=== PATIENT | male | born 1940 | race Caucasian/White ===

== ENCOUNTER 2018-01-19 22:48 | Inpatient (IN) | payer MEDICARE, OTHER ==
[~2018-01-19] VITALS: Ht 170.2 cm; Wt 63.6 kg
[~2018-01-19 22:48] MED LIST: ALBU18HF2 IH; ALPR-624 PO; AMLO2.5T2 PO; ATOR20TA PO; HYDR-3965 PO; MULT-785 PO; OMEP-84 PO
[2018-01-19] MEDS ORDERED: methylPREDNISolone sod succ 125mg/2ml vial IV ONE (23:05)
[2018-01-19] MEDS ORDERED: ipratropium/albuterol 3ml nebule NEB ONE (23:05)
[2018-01-19] MEDS: magnesium 1gm/100ml D5W IVPB 100 ML IV SCH (23:29)
[2018-01-19 23:37] LABS: BASOPHILS # (AUTO) 0.2 X10'3 (0-0.2); EOSINOPHILS % (AUTO) 0.1 % (0-6); HEMATOCRIT 37.6 % (42.0-52.0); HEMOGLOBIN 12.6 g/dl (14.0-17.9); LYMPHOCYTES # (AUTO) 0.2 X10'3 (1.1-4.8); LYMPHOCYTES % (AUTO) 1.1 % (21-51); MEAN CORPUSCULAR HEMOGLOBIN 30.4 PG (27.0-31.0); MEAN CORPUSCULAR HGB CONC 33.4 % (33.0-36.5); MEAN CORPUSCULAR VOLUME 91.1 FL (78-98); MEAN PLATELET VOLUME 8.6 FL (7.4-10.4); MONOCYTES # (AUTO) 1.1 X10'3 (0-0.9); MONOCYTES % (AUTO) 6.1 % (2-12); NEUTROPHILS # (AUTO) 17.3 X10'3 (1.8-7.7); NEUTROPHILS % (AUTO) 91.7 % (42-75); PLATELET COUNT 202 X10'3 (140-440); RED BLOOD COUNT 4.13 X10'6 (4.70-6.10); WHITE BLOOD COUNT 18.9 X10'3 (4.5-11.0)
[2018-01-19 23:56] LABS: D-DIMER 0.44 MG/L FEU (0-0.50)
[2018-01-19 23:58] LABS: ALANINE AMINOTRANSFERASE 13 U/L (12-78); ALBUMIN 3.1 G/DL (3.4-5.0); ALBUMIN/GLOBULIN RATIO 0.9 (1.1-1.5); ALKALINE PHOSPHATASE 92 IU/L (46-116); ANION GAP 8 (8-16); ASPARTATE AMINO TRANSFERASE 14 U/L (10-37); BILIRUBIN,TOTAL 0.6 MG/DL (0.1-1.0); BLOOD UREA NITROGEN 22 MG/DL (7-18); BUN/CREATININE RATIO 24.4 (5.4-32.0); CALCIUM 8.8 MG/DL (8.5-10.1); CHLORIDE 97 MMOL/L (99-107); GLUCOSE 146 MG/DL (70-104); SODIUM 136 MMOL/L (135-145); TOTAL CARBON DIOXIDE 31.5 MMOL/L (24-32); TOTAL PROTEIN 6.5 G/DL (6.4-8.2); eGFR 81 ML/MIN
[2018-01-20 00:07] LABS: MAGNESIUM 1.5 MG/DL (1.5-2.4)
[2018-01-20] MEDS ORDERED: CefTRIAXone 2gm/D5W 50ml 50 ML IV ONE (00:15)
[2018-01-20] MEDS ORDERED: azithromycin/NS 500mg/250ml 250 ML IV ONE (00:15)
[2018-01-20] MEDS ORDERED: ALBU18HF2 INH (00:33)
[2018-01-20] MEDS ORDERED: MAGN400O6 PO (00:33)
[2018-01-20] MEDS ORDERED: SENN-161 PO (00:33)
[2018-01-20] MEDS ORDERED: CALC500T11 PO (00:33)
[2018-01-20] MEDS: magnesium 1gm/100ml D5W IVPB 100 ML IV SCH (00:33)
[2018-01-20] MEDS ORDERED: NAPR-56 PO (00:33)
[2018-01-20] MEDS ORDERED: LORA1TAB PO (00:33)
[2018-01-20] MEDS ORDERED: MORP10CA11 PO (00:33)
[2018-01-20] MEDS ORDERED: magnesium 1gm/100ml D5W IVPB 100 ML IV PRN (01:00)
[2018-01-20] MEDS ORDERED: ipratropium/albuterol 3ml nebule NEB PRN (01:00)
[2018-01-20] MEDS ORDERED: mag hydrox/Alum hydrox/simeth 30ml oral suspension PO PRN (01:00)
[2018-01-20] MEDS ORDERED: potassium Cl 20 mEq SR tablet PO PRN ×2 (01:00)
[2018-01-20] MEDS ORDERED: magnesium 4gm in 100ml NS 100 ML IV PRN (01:00)
[2018-01-20] MEDS ORDERED: HYDROcodone/acetaminophen 10/325mg tab PO PRN (01:00)
[2018-01-20] MEDS ORDERED: HYDROcodone/acetaminophen 5mg/325mg tablet PO PRN (01:00)
[2018-01-20] MEDS ORDERED: magnesium hydroxide 30ml (MOM) UD suspension PO PRN (01:00)
[2018-01-20] MEDS ORDERED: ondansetron/PF 4mg/2ml inj IV PRN (01:00)
[2018-01-20] MEDS ORDERED: acetaminophen 325mg tablet PO PRN (01:00)
[2018-01-20] MEDS ORDERED: potassium Cl 40MEQ/NS 500ml 500 ML IV PRN ×2 (01:00)
[2018-01-20 02:40] VITALS: BP 136/57
[2018-01-20] MEDS: calcium carbonate 500mg chew tablet PO SCH ×5 (03:35→20:00)
[2018-01-20 07:00] VITALS: BP 115/46
[2018-01-20] MEDS: K and/or MAG REPLACEMENT MC SCH (07:50)
[2018-01-20] MEDS: pantoprazole 40mg Tablet.DR PO SCH (07:52)
[2018-01-20] MEDS: morphine ER 15mg tablet PO SCH ×2 (07:52→20:32)
[2018-01-20] MEDS: enoxaparin 40mg/0.4ml syringe SQ SCH (07:53)
[2018-01-20 08:51] LABS: BASOPHILS % (AUTO) 0 % (0-1); EOSINOPHILS # (AUTO) 0.4 X10'3 (0-0.9); EOSINOPHILS % (AUTO) 1.6 % (0-6); HEMATOCRIT 39.3 % (42.0-52.0); LYMPHOCYTES # (AUTO) 0.3 X10'3 (1.1-4.8); LYMPHOCYTES % (AUTO) 1.2 % (21-51); MEAN CORPUSCULAR HEMOGLOBIN 30.4 PG (27.0-31.0); MEAN CORPUSCULAR HGB CONC 33.2 % (33.0-36.5); MEAN CORPUSCULAR VOLUME 91.8 FL (78-98); MEAN PLATELET VOLUME 8.6 FL (7.4-10.4); MONOCYTES # (AUTO) 0.2 X10'3 (0-0.9); MONOCYTES % (AUTO) 0.9 % (2-12); NEUTROPHILS % (AUTO) 96.3 % (42-75); PLATELET COUNT 206 X10'3 (140-440); RED BLOOD COUNT 4.28 X10'6 (4.70-6.10); WHITE BLOOD COUNT 21.8 X10'3 (4.5-11.0)
[2018-01-20 11:00] VITALS: BP 112/50
[2018-01-20 20:00] VITALS: BP 142/61
[2018-01-20] MEDS ORDERED: LORazepam 1 MG tablet PO SCH (21:00)
[2018-01-21] VITALS: BP 121/55
[2018-01-21] MEDS: calcium carbonate 500mg chew tablet PO SCH ×4 (04:00→12:00)
[2018-01-21 05:00] LABS: BASOPHILS % (AUTO) 0.2 % (0-1); EOSINOPHILS # (AUTO) 0.2 X10'3 (0-0.9); EOSINOPHILS % (AUTO) 1.2 % (0-6); HEMATOCRIT 39.1 % (42.0-52.0); HEMOGLOBIN 13.3 g/dl (14.0-17.9); LYMPHOCYTES # (AUTO) 0.6 X10'3 (1.1-4.8); LYMPHOCYTES % (AUTO) 2.9 % (21-51); MEAN CORPUSCULAR HEMOGLOBIN 30.9 PG (27.0-31.0); MEAN CORPUSCULAR HGB CONC 34.1 % (33.0-36.5); MEAN CORPUSCULAR VOLUME 90.6 FL (78-98); MEAN PLATELET VOLUME 8.8 FL (7.4-10.4); MONOCYTES # (AUTO) 0.9 X10'3 (0-0.9); MONOCYTES % (AUTO) 4.1 % (2-12); NEUTROPHILS # (AUTO) 19.3 X10'3 (1.8-7.7); NEUTROPHILS % (AUTO) 91.6 % (42-75); PLATELET COUNT 236 X10'3 (140-440); RED BLOOD COUNT 4.32 X10'6 (4.70-6.10); RED CELL DISTRIBUTION WIDTH 13.9 % (11.5-14.5); WHITE BLOOD COUNT 21.1 X10'3 (4.5-11.0)
[2018-01-21 05:16] LABS: ALANINE AMINOTRANSFERASE 17 U/L (12-78); ALBUMIN/GLOBULIN RATIO 0.7 (1.1-1.5); ALKALINE PHOSPHATASE 92 IU/L (46-116); ANION GAP 5 (8-16); ASPARTATE AMINO TRANSFERASE 13 U/L (10-37); BILIRUBIN,TOTAL 0.4 MG/DL (0.1-1.0); BLOOD UREA NITROGEN 24 MG/DL (7-18); BUN/CREATININE RATIO 24.5 (5.4-32.0); CALCIUM 9.5 MG/DL (8.5-10.1); CHLORIDE 98 MMOL/L (99-107); CHOL/HDL RATIO 1.8 (0.00-4.99); CHOLESTEROL 170 MG/DL (0-200); CREATININE 0.98 MG/DL (0.60-1.10); GLUCOSE 128 MG/DL (70-104); HDL CHOLESTEROL 92 MG/DL (35-60); LDL CHOLESTEROL 55 MG/DL (50-100); MAGNESIUM 2.3 MG/DL (1.5-2.4); POTASSIUM 3.9 MMOL/L (3.5-5.1); SODIUM 136 MMOL/L (135-145); TOTAL CARBON DIOXIDE 32.8 MMOL/L (24-32); TOTAL PROTEIN 7.1 G/DL (6.4-8.2); TRIGLYCERIDES 53 MG/DL (20-135); eGFR 74 ML/MIN
[2018-01-21 07:21] VITALS: BP 146/64
[2018-01-21] MEDS: morphine ER 15mg tablet PO SCH (07:31)
[2018-01-21] MEDS: pantoprazole 40mg Tablet.DR PO SCH (07:31)
[2018-01-21] MEDS: enoxaparin 40mg/0.4ml syringe SQ SCH (07:32)
[2018-01-21] MEDS ORDERED: cefTRIAXone 1g/NS 100ml IVPB 100 ML IV SCH (08:00)
[2018-01-21] MEDS ORDERED: azithromycin/NS 500mg/250ml 250 ML IV SCH (08:00)
[2018-01-21] MEDS: K and/or MAG REPLACEMENT MC SCH (08:00)
[2018-01-21] MEDS ORDERED: PRED10TA23 PO (08:52)
[2018-01-21] MEDS ORDERED: LEVO750T21 PO (08:52)
[2018-01-21 12:51] VITALS: BP 173/76
== END 2018-01-21 14:15 | disposition home health service (06) | DRG 190 ==
LOC: ER 22:48 → ED HOLD 01-20 00:57 → EDBEDREQTM 01-20 02:26 → SUR 3N 01-20 02:43
PROVIDERS: ADMIT Family Medicine; ATTEND Internal Medicine
DX: J44.1 Chronic obstructive pulmonary disease with (acute) exacerbation (principal); J18.9 Pneumonia, unspecified organism; J96.10 Chronic respiratory failure, unspecified whether with hypoxia or hypercapnia; J44.0 Chronic obstructive pulmonary disease with (acute) lower respiratory infection; E78.5 Hyperlipidemia, unspecified; G89.4 Chronic pain syndrome; I10 Essential (primary) hypertension; E78.00 Pure hypercholesterolemia, unspecified; K21.9 Gastro-esophageal reflux disease without esophagitis; Z96.612 Presence of left artificial shoulder joint; Z66 Do not resuscitate; Z99.81 Dependence on supplemental oxygen; Z79.899 Other long term (current) drug therapy; Z79.52 Long term (current) use of systemic steroids; Z88.8 Allergy status to other drugs, medicaments and biological substances; Z87.11 Personal history of peptic ulcer disease; Z87.891 Personal history of nicotine dependence
CPT/HCPCS: 36415; 71045; 80053; 80061; 83735; 83880; 84145; 84484; 85025; 85379; 87070; 93005; 94640; 94760; A6449; J0456; J0696; J1650; J2930

== ENCOUNTER 2018-07-28 11:34 | Inpatient (IN) | payer MEDICARE, OTHER | END 2018-07-30 14:15 | disposition home or self-care (01) | LOC: ER 11:34 → ED HOLD 14:22 → SUR 3N 21:03 | DX: J96.21 Acute and chronic respiratory failure with hypoxia (principal); J44.1 Chronic obstructive pulmonary disease with (acute) exacerbation; D72.829 Elevated white blood cell count, unspecified; G89.4 Chronic pain syndrome; K21.9 Gastro-esophageal reflux disease without esophagitis; F41.9 Anxiety disorder, unspecified; I10 Essential (primary) hypertension ==

== ENCOUNTER 2019-09-01 10:50 | Emergency (ER) | payer MEDICARE, OTHER ==
[~2019-09-01] VITALS: Ht 170.2 cm; Wt 60.0 kg
[~2019-09-01 10:50] MED LIST changes: -ALBU18HF2 IH; +ALBU18HF2 INH; -ALPR-624 PO; -AMLO2.5T2 PO; -ATOR20TA PO; +BUDE10.22 INH; +LORA1TAB PO; +MAGN400O6 PO; +MORP-92 PO; -MULT-785 PO; +SENN-250 PO
[2019-09-01 11:52] LABS: BASOPHILS % (AUTO) 0.1 % (0-1); EOSINOPHILS % (AUTO) 0.1 % (0-6); HEMATOCRIT 34.9 % (42.0-52.0); HEMOGLOBIN 11.5 g/dl (14.0-17.9); LYMPHOCYTES # (AUTO) 0.4 X10'3 (1.1-4.8); LYMPHOCYTES % (AUTO) 2.2 % (21-51); MEAN CORPUSCULAR HGB CONC 32.9 g/dL (33.0-36.5); MEAN CORPUSCULAR VOLUME 91.3 FL (78-98); MEAN PLATELET VOLUME 8.6 FL (7.4-10.4); MONOCYTES # (AUTO) 0.8 X10'3 (0-0.9); MONOCYTES % (AUTO) 5.2 % (2-12); NEUTROPHILS # (AUTO) 14.8 X10'3 (1.8-7.7); NEUTROPHILS % (AUTO) 92.4 % (42-75); PLATELET COUNT 195 X10'3 (140-440); RED BLOOD COUNT 3.82 X10'6 (4.70-6.10); RED CELL DISTRIBUTION WIDTH 13.6 % (11.5-14.5); WHITE BLOOD COUNT 16.1 X10'3 (4.5-11.0)
[2019-09-01 12:10] LABS: ALANINE AMINOTRANSFERASE 14 U/L (12-78); ALBUMIN 3.2 G/DL (3.4-5.0); ALBUMIN/GLOBULIN RATIO 0.9 (1.1-1.5); ALKALINE PHOSPHATASE 63 IU/L (46-116); ANION GAP 4 (8-16); ASPARTATE AMINO TRANSFERASE 14 U/L (10-37); BILIRUBIN,TOTAL 0.8 MG/DL (0.1-1.0); BLOOD UREA NITROGEN 19 MG/DL (7-18); BUN/CREATININE RATIO 21.3 (5.4-32.0); CALCIUM 8.6 MG/DL (8.5-10.1); CHLORIDE 101 MMOL/L (99-107); CREATININE 0.89 MG/DL (0.60-1.10); GLUCOSE 121 MG/DL (70-104); POTASSIUM 3.9 MMOL/L (3.5-5.1); SODIUM 140 MMOL/L (135-145); TOTAL CARBON DIOXIDE 35.3 MMOL/L (24-32); TOTAL PROTEIN 6.6 G/DL (6.4-8.2); eGFR 82 ML/MIN
[2019-09-01] MEDS ORDERED: DOXY100C77 PO (14:02)
[2019-09-01] MEDS ORDERED: PRED20TA PO (14:02)
[2019-09-01 14:17] VITALS: BP 148/68
== END 2019-09-01 14:19 | disposition home or self-care (01) ==
LOC: ER 10:51
DX: J44.1 Chronic obstructive pulmonary disease with (acute) exacerbation (principal); R06.02 Shortness of breath; R05 Cough; I10 Essential (primary) hypertension; Z87.11 Personal history of peptic ulcer disease; G89.29 Other chronic pain; Z88.6 Allergy status to analgesic agent; Z79.899 Other long term (current) drug therapy
CPT/HCPCS: 36415; 71045; 80053; 83880; 84484; 85025; 99285

== ENCOUNTER 2023-06-05 22:47 | Inpatient (IN) | payer MEDICARE, OTHER ==
[~2023-06-05] VITALS: Ht 172.7 cm; Wt 72.7 kg
[~2023-06-05 22:47] MED LIST changes: -BUDE10.22 INH; +DICL100G59 TOP; +IBUP-1985 PO; +LISI5TAB22 PO; -MAGN400O6 PO; +SENN-25 PO; -SENN-250 PO; +TIOT4MIS3 PO; +TRAZ-256 PO
[2023-06-06] VITALS (7 sets, daily range): BP systolic 116–145; BP diastolic 56–82; PULSE 88–105; RESP 16–25; TEMP 98.7–99.1; O2SAT 92–97
[2023-06-06] MEDS ORDERED: ipratropium/albuterol 3ml nebule NEB ONE (07:45)
[2023-06-06] MEDS ORDERED: HYDROcodone/acetaminophen 5mg/325mg tablet PO ONE (08:45)
[2023-06-06 08:50] LABS: BASOPHILS # (AUTO) 0.1 X10'3 (0-0.2); BASOPHILS % (AUTO) 0.3 % (0-1); EOSINOPHILS % (AUTO) 0.1 % (0-6); HEMATOCRIT 36.5 % (42.0-52.0); HEMOGLOBIN 12.2 g/dl (14.0-17.9); LYMPHOCYTES # (AUTO) 0.4 X10'3 (1.1-4.8); LYMPHOCYTES % (AUTO) 2.3 % (21-51); MEAN CORPUSCULAR HEMOGLOBIN 30.8 PG (27.0-31.0); MEAN CORPUSCULAR HGB CONC 33.3 g/dL (33.0-36.5); MEAN CORPUSCULAR VOLUME 92.4 FL (78-98); MEAN PLATELET VOLUME 9.1 FL (7.4-10.4); MONOCYTES # (AUTO) 1.3 X10'3 (0-0.9); NEUTROPHILS # (AUTO) 14.3 X10'3 (1.8-7.7); NEUTROPHILS % (AUTO) 89.3 % (42-75); PLATELET COUNT 202 X10'3 (140-440); RED BLOOD COUNT 3.95 X10'6 (4.70-6.10); RED CELL DISTRIBUTION WIDTH 13.4 % (11.5-14.5)
[2023-06-06 09:08] LABS: D-DIMER 1.34 MG/L FEU (0-0.50)
[2023-06-06 11:56] LABS: ALANINE AMINOTRANSFERASE 22 U/L (12-78); ALBUMIN 3.3 G/DL (3.4-5.0); ALBUMIN/GLOBULIN RATIO 0.8 (1.1-1.5); ALKALINE PHOSPHATASE 116 IU/L (46-116); ANION GAP 6 (8-16); ASPARTATE AMINO TRANSFERASE 30 U/L (10-37); BLOOD UREA NITROGEN 18 MG/DL (7-18); BUN/CREATININE RATIO 20.7 (10.0-20.0); CALCIUM 9.7 MG/DL (8.5-10.1); CHLORIDE 97 MMOL/L (99-107); CREATININE 0.87 MG/DL (0.60-1.10); GLUCOSE 104 MG/DL (70-104); POTASSIUM 3.6 MMOL/L (3.5-5.1); PRO BRAIN NATRIURETIC PEPTIDE 940 PG/ML (0-450); SODIUM 137 MMOL/L (135-145); TOTAL CARBON DIOXIDE 34.4 MMOL/L (24-32); TOTAL PROTEIN 7.7 G/DL (6.4-8.2); eCRCL 60 ML/MIN; eGFR 83 ML/MIN
[2023-06-06] MEDS ORDERED: piperacillin/tazo 3.375gm/50ml 50 ML IV ONE (13:25)
[2023-06-06] MEDS ORDERED: iohexol 350MG/ML 100ml bottle IV ONE (14:41)
[2023-06-06] MEDS ORDERED: ipratropium/albuterol 3ml nebule NEB PRN (16:00)
[2023-06-06] MEDS ORDERED: ondansetron 4mg rapidly disintigrating tab PO PRN (16:00)
[2023-06-06] MEDS ORDERED: CefTRIAXone/D5W-Rocephin 1gm 50 ML IV ONE (16:00)
[2023-06-06] MEDS ORDERED: magnesium 4gm in 100ml NS 100 ML IV PRN (16:00)
[2023-06-06] MEDS ORDERED: magnesium hydroxide 30ml (MOM) UD suspension PO PRN (16:00)
[2023-06-06] MEDS ORDERED: azithromycin/NS 500mg/250ml 250 ML IV ONE (16:00)
[2023-06-06] MEDS ORDERED: magnesium Cl slow-release 64mg tablet PO PRN (16:00)
[2023-06-06] MEDS ORDERED: ondansetron/PF 4mg/2ml inj IV PRN (16:00)
[2023-06-06] MEDS ORDERED: acetaminophen 650mg rectal suppository RC PRN (16:00)
[2023-06-06] MEDS ORDERED: magnesium 2GM in 50ml NS 50 ML IV PRN (16:00)
[2023-06-06] MEDS ORDERED: mag hydrox/Alum hydrox/simeth 30ml oral suspension PO PRN (16:00)
[2023-06-06] MEDS ORDERED: potassium Cl 20 mEq SR tablet PO PRN (16:00)
[2023-06-06] MEDS ORDERED: acetaminophen 325mg tablet PO PRN ×2 (16:00)
[2023-06-06] MEDS ORDERED: potassium Cl 40MEQ/1/2NS 520ml 520 ML IV PRN (16:00)
[2023-06-06 16:35] LABS: BILIRUBIN,URINE NEGATIVE (Neg); CLARITY,URINE CLEAR (Clear); COLOR,URINE YELLOW (Yellow); GLUCOSE, URINE NEGATIVE (Neg); KETONES,URINE 15 mg/dl (Neg); LEUKOCYTE ESTERASE ,URINE NEGATIVE (Neg); NITRITES, URINE NEGATIVE (Neg); OCCULT BLOOD,URINE TRACE-INTACT (Neg); PROTEIN,URINE 100 mg/dl (Neg)
[2023-06-06 16:45] LABS: SQUAMOUS EPITHELIAL CELL,UR FEW /LPF (FEW); UA COLLECTION TYPE VOIDED
[2023-06-06 16:46] LABS: BACTERIA,URINE FEW /HPF (Neg); HYALINE CASTS 0-3 /LPF (NEGATIVE); MUCUS STRANDS FEW /LPF (Neg); RBC,URINE 0-2 /HPF (0-2); TRANSITIONAL EPI CELLS,URINE FEW /HPF; WBC,URINE 0-4 /HPF (0-4)
[2023-06-06] MEDS: normal saline 1000ml 1,000 ML IV SCH (17:16)
[2023-06-06] MEDS: ipratropium/albuterol 3ml nebule NEB SCH (19:14)
[2023-06-06] MEDS: K and/or MAG REPLACEMENT MC SCH (20:00)
[2023-06-06] MEDS: docusate sod 100mg capsule PO SCH (20:35)
[2023-06-06] MEDS: guaiFENesin ER 600mg tablet PO SCH (20:35)
[2023-06-06] MEDS ORDERED: temazepam 15mg capsule PO PRN (21:00)
[2023-06-06] MEDS: HYDROcodone/acetaminophen 5mg/325mg tablet PO PRN (22:31)
[2023-06-07] VITALS (20 sets, daily range): BP systolic 133–141; BP diastolic 48–77; PULSE 76–98; RESP 16–20; TEMP 97.3–99.2; O2SAT 92–97
[2023-06-07] MEDS ORDERED: HYDROcodone/acetaminophen 5mg/325mg tablet PO PRN
[2023-06-07] MEDS: ipratropium/albuterol 3ml nebule NEB SCH ×7 (00:08→23:10)
[2023-06-07] MEDS ORDERED: albuterol 2.5 MG/3 ML nebule NEB PRN (00:10)
[2023-06-07] MEDS: normal saline 1000ml 1,000 ML IV SCH (06:31)
[2023-06-07 07:23] LABS: BASOPHILS # (AUTO) 0.1 X10'3 (0-0.2); BASOPHILS % (AUTO) 0.5 % (0-1); EOSINOPHILS % (AUTO) 0 % (0-6); HEMATOCRIT 30.1 % (42.0-52.0); HEMOGLOBIN 9.8 g/dl (14.0-17.9); LYMPHOCYTES # (AUTO) 0.3 X10'3 (1.1-4.8); LYMPHOCYTES % (AUTO) 2.2 % (21-51); MEAN CORPUSCULAR HEMOGLOBIN 30.1 PG (27.0-31.0); MEAN CORPUSCULAR HGB CONC 32.6 g/dL (33.0-36.5); MEAN CORPUSCULAR VOLUME 92.3 FL (78-98); MEAN PLATELET VOLUME 9.1 FL (7.4-10.4); MONOCYTES # (AUTO) 1.3 X10'3 (0-0.9); MONOCYTES % (AUTO) 9.1 % (2-12); NEUTROPHILS # (AUTO) 12.6 X10'3 (1.8-7.7); NEUTROPHILS % (AUTO) 88.2 % (42-75); PLATELET COUNT 178 X10'3 (140-440); RED BLOOD COUNT 3.27 X10'6 (4.70-6.10); RED CELL DISTRIBUTION WIDTH 13.2 % (11.5-14.5); WHITE BLOOD COUNT 14.3 X10'3 (4.5-11.0)
[2023-06-07] MEDS: K and/or MAG REPLACEMENT MC SCH ×2 (07:49→20:00)
[2023-06-07 07:52] LABS: ALANINE AMINOTRANSFERASE 20 U/L (12-78); ALBUMIN 2.3 G/DL (3.4-5.0); ALBUMIN/GLOBULIN RATIO 0.6 (1.1-1.5); ALKALINE PHOSPHATASE 135 IU/L (46-116); ANION GAP 6 (8-16); ASPARTATE AMINO TRANSFERASE 28 U/L (10-37); BILIRUBIN,TOTAL 0.6 MG/DL (0.1-1.0); BLOOD UREA NITROGEN 10 MG/DL (7-18); BUN/CREATININE RATIO 13.9 (10.0-20.0); CALCIUM 8.7 MG/DL (8.5-10.1); CHLORIDE 99 MMOL/L (99-107); CREATININE 0.72 MG/DL (0.60-1.10); GLUCOSE 100 MG/DL (70-104); MAGNESIUM 1.6 MG/DL (1.5-2.4); SODIUM 137 MMOL/L (135-145); TOTAL PROTEIN 5.9 G/DL (6.4-8.2); eCRCL 73 ML/MIN; eGFR > 90 ML/MIN
[2023-06-07] MEDS: CefTRIAXone/D5W-Rocephin 1gm 50 ML IV SCH (07:52)
[2023-06-07] MEDS: pantoprazole 40mg Tablet.DR PO SCH (07:52)
[2023-06-07] MEDS: docusate sod 100mg capsule PO SCH ×2 (07:53→21:16)
[2023-06-07] MEDS: lisinopril 5mg tablet PO SCH (07:53)
[2023-06-07] MEDS: guaiFENesin ER 600mg tablet PO SCH ×2 (07:53→21:16)
[2023-06-07] MEDS: morphine ER 15mg tablet PO SCH ×2 (07:53→21:17)
[2023-06-07] MEDS: enoxaparin 40mg/0.4ml syringe SUBCUT SCH (07:55)
[2023-06-07 08:14] LABS: POTASSIUM 2.9 MMOL/L (3.5-5.1)
[2023-06-07] MEDS: potassium Cl 20 mEq SR tablet PO PRN ×3 (08:17→17:39)
[2023-06-07] MEDS ORDERED: Potassium Cl inj 20 MEQ in normal saline 1000ml 990 ML IV SCH (09:05)
[2023-06-07] MEDS: azithromycin/NS 500mg/250ml 250 ML IV SCH (09:37)
[2023-06-07] MEDS: potassium Cl 20mEq in NS 1,000 ML IV SCH ×2 (12:31→23:25)
[2023-06-07] MEDS: HYDROcodone/acetaminophen 5mg/325mg tablet PO PRN (12:31)
[2023-06-07] MEDS ORDERED: predniSONE 20 mg tablet PO ONE (17:30)
[2023-06-07] MEDS: traZODone 50mg tablet PO SCH (21:16)
[2023-06-07] MEDS: LORazepam 1 MG tablet PO SCH (21:16)
[2023-06-08] VITALS (13 sets, daily range): BP systolic 133–151; BP diastolic 55–68; PULSE 74–101; RESP 16–18; TEMP 97.2–98.3; O2SAT 92–99
[2023-06-08] MEDS: HYDROcodone/acetaminophen 5mg/325mg tablet PO PRN (00:43)
[2023-06-08] MEDS: ipratropium/albuterol 3ml nebule NEB SCH ×6 (03:03→23:33)
[2023-06-08 05:46] LABS: BASOPHILS % (AUTO) 0 % (0-1); EOSINOPHILS % (AUTO) 0 % (0-6); HEMATOCRIT 28.4 % (42.0-52.0); HEMOGLOBIN 9.3 g/dl (14.0-17.9); LYMPHOCYTES # (AUTO) 0.1 X10'3 (1.1-4.8); LYMPHOCYTES % (AUTO) 1.5 % (21-51); MEAN CORPUSCULAR HEMOGLOBIN 30.4 PG (27.0-31.0); MEAN CORPUSCULAR HGB CONC 32.9 g/dL (33.0-36.5); MEAN CORPUSCULAR VOLUME 92.3 FL (78-98); MEAN PLATELET VOLUME 8.7 FL (7.4-10.4); MONOCYTES # (AUTO) 0.2 X10'3 (0-0.9); MONOCYTES % (AUTO) 2.2 % (2-12); NEUTROPHILS # (AUTO) 9.4 X10'3 (1.8-7.7); NEUTROPHILS % (AUTO) 96.3 % (42-75); PLATELET COUNT 176 X10'3 (140-440); RED BLOOD COUNT 3.08 X10'6 (4.70-6.10); RED CELL DISTRIBUTION WIDTH 13.4 % (11.5-14.5); WHITE BLOOD COUNT 9.8 X10'3 (4.5-11.0)
[2023-06-08 05:57] LABS: ALANINE AMINOTRANSFERASE 25 U/L (12-78); ALBUMIN 2.2 G/DL (3.4-5.0); ALBUMIN/GLOBULIN RATIO 0.6 (1.1-1.5); ALKALINE PHOSPHATASE 88 IU/L (46-116); ANION GAP 5 (8-16); ASPARTATE AMINO TRANSFERASE 34 U/L (10-37); BILIRUBIN,TOTAL 0.4 MG/DL (0.1-1.0); BLOOD UREA NITROGEN 11 MG/DL (7-18); BUN/CREATININE RATIO 18.3 (10.0-20.0); CALCIUM 8.7 MG/DL (8.5-10.1); CHLORIDE 102 MMOL/L (99-107); GLUCOSE 150 MG/DL (70-104); MAGNESIUM 1.7 MG/DL (1.5-2.4); POTASSIUM 4.6 MMOL/L (3.5-5.1); SODIUM 137 MMOL/L (135-145); TOTAL CARBON DIOXIDE 30.1 MMOL/L (24-32); TOTAL PROTEIN 5.8 G/DL (6.4-8.2); eCRCL 87 ML/MIN; eGFR > 90 ML/MIN
[2023-06-08] MEDS: pantoprazole 40mg Tablet.DR PO SCH (07:28)
[2023-06-08] MEDS: guaiFENesin ER 600mg tablet PO SCH ×2 (07:28→21:50)
[2023-06-08] MEDS: morphine ER 15mg tablet PO SCH ×2 (07:28→21:50)
[2023-06-08] MEDS: lisinopril 5mg tablet PO SCH (07:29)
[2023-06-08] MEDS: predniSONE 20 mg tablet PO SCH (07:29)
[2023-06-08] MEDS: docusate sod 100mg capsule PO SCH ×2 (07:29→21:51)
[2023-06-08] MEDS: CefTRIAXone/D5W-Rocephin 1gm 50 ML IV SCH (07:29)
[2023-06-08] MEDS: enoxaparin 40mg/0.4ml syringe SUBCUT SCH (07:30)
[2023-06-08] MEDS: K and/or MAG REPLACEMENT MC SCH ×2 (08:00→20:00)
[2023-06-08] MEDS: azithromycin/NS 500mg/250ml 250 ML IV SCH (10:33)
[2023-06-08] MEDS: potassium Cl 20mEq in NS 1,000 ML IV SCH (19:29)
[2023-06-08] MEDS: LORazepam 1 MG tablet PO SCH (21:50)
[2023-06-08] MEDS: traZODone 50mg tablet PO SCH (21:50)
[2023-06-09] VITALS (12 sets, daily range): BP systolic 132–169; BP diastolic 57–75; PULSE 71–100; RESP 16–20; TEMP 97.7–98.4; O2SAT 93–98
[2023-06-09] MEDS: ipratropium/albuterol 3ml nebule NEB SCH ×6 (03:00→23:00)
[2023-06-09] MEDS: potassium Cl 20mEq in NS 1,000 ML IV SCH ×2 (03:21→20:08)
[2023-06-09 06:19] LABS: ALANINE AMINOTRANSFERASE 24 U/L (12-78); ALBUMIN 2.5 G/DL (3.4-5.0); ALBUMIN/GLOBULIN RATIO 0.6 (1.1-1.5); ALKALINE PHOSPHATASE 80 IU/L (46-116); ANION GAP 3 (8-16); ASPARTATE AMINO TRANSFERASE 27 U/L (10-37); BILIRUBIN,TOTAL 0.4 MG/DL (0.1-1.0); BLOOD UREA NITROGEN 13 MG/DL (7-18); BUN/CREATININE RATIO 17.8 (10.0-20.0); CALCIUM 9.3 MG/DL (8.5-10.1); CHLORIDE 103 MMOL/L (99-107); CREATININE 0.73 MG/DL (0.60-1.10); GLUCOSE 109 MG/DL (70-104); MAGNESIUM 1.7 MG/DL (1.5-2.4); POTASSIUM 4.2 MMOL/L (3.5-5.1); SODIUM 140 MMOL/L (135-145); TOTAL CARBON DIOXIDE 33.7 MMOL/L (24-32); TOTAL PROTEIN 6.4 G/DL (6.4-8.2); eCRCL 72 ML/MIN; eGFR > 90 ML/MIN
[2023-06-09 06:22] LABS: RED CELL DISTRIBUTION WIDTH 13.6 % (11.5-14.5)
[2023-06-09 06:25] LABS: BASOPHILS % (AUTO) 0.2 % (0-1); EOSINOPHILS % (AUTO) 0.3 % (0-6); HEMATOCRIT 32.6 % (42.0-52.0); HEMOGLOBIN 10.5 g/dl (14.0-17.9); LYMPHOCYTES # (AUTO) 0.5 X10'3 (1.1-4.8); MEAN CORPUSCULAR HEMOGLOBIN 29.9 PG (27.0-31.0); MEAN CORPUSCULAR HGB CONC 32.1 g/dL (33.0-36.5); MEAN CORPUSCULAR VOLUME 93.1 FL (78-98); MEAN PLATELET VOLUME 8.3 FL (7.4-10.4); MONOCYTES # (AUTO) 1.5 X10'3 (0-0.9); MONOCYTES % (AUTO) 12.2 % (2-12); NEUTROPHILS % (AUTO) 83.3 % (42-75); PLATELET COUNT 225 X10'3 (140-440); RED BLOOD COUNT 3.51 X10'6 (4.70-6.10)
[2023-06-09] MEDS: K and/or MAG REPLACEMENT MC SCH ×2 (08:00→20:00)
[2023-06-09] MEDS: CefTRIAXone/D5W-Rocephin 1gm 50 ML IV SCH (08:10)
[2023-06-09] MEDS: azithromycin/NS 500mg/250ml 250 ML IV SCH (08:11)
[2023-06-09] MEDS: pantoprazole 40mg Tablet.DR PO SCH (08:11)
[2023-06-09] MEDS: guaiFENesin ER 600mg tablet PO SCH ×2 (08:11→20:08)
[2023-06-09] MEDS: docusate sod 100mg capsule PO SCH ×2 (08:11→20:08)
[2023-06-09] MEDS: predniSONE 20 mg tablet PO SCH (08:12)
[2023-06-09] MEDS: lisinopril 5mg tablet PO SCH (08:12)
[2023-06-09] MEDS: morphine ER 15mg tablet PO SCH ×2 (08:12→20:08)
[2023-06-09] MEDS: enoxaparin 40mg/0.4ml syringe SUBCUT SCH (08:13)
[2023-06-09] MEDS: traZODone 50mg tablet PO SCH (20:08)
[2023-06-09] MEDS: LORazepam 1 MG tablet PO SCH (20:08)
[2023-06-10] VITALS (10 sets, daily range): BP systolic 136–157; BP diastolic 70; PULSE 69–93; RESP 16–20; TEMP 97.8–98.4; O2SAT 91–96
[2023-06-10] MEDS: HYDROcodone/acetaminophen 5mg/325mg tablet PO PRN (01:14)
[2023-06-10] MEDS: ipratropium/albuterol 3ml nebule NEB SCH ×3 (02:52→11:27)
[2023-06-10 07:00] LABS: BASOPHILS % (AUTO) 0.1 % (0-1); EOSINOPHILS # (AUTO) 0.1 X10'3 (0-0.9); EOSINOPHILS % (AUTO) 0.6 % (0-6); HEMATOCRIT 30.9 % (42.0-52.0); HEMOGLOBIN 10.2 g/dl (14.0-17.9); LYMPHOCYTES # (AUTO) 0.5 X10'3 (1.1-4.8); LYMPHOCYTES % (AUTO) 5.7 % (21-51); MEAN CORPUSCULAR HEMOGLOBIN 30.3 PG (27.0-31.0); MEAN CORPUSCULAR HGB CONC 32.9 g/dL (33.0-36.5); MEAN CORPUSCULAR VOLUME 92.2 FL (78-98); MEAN PLATELET VOLUME 7.7 FL (7.4-10.4); MONOCYTES # (AUTO) 1.1 X10'3 (0-0.9); MONOCYTES % (AUTO) 11.2 % (2-12); NEUTROPHILS # (AUTO) 7.9 X10'3 (1.8-7.7); NEUTROPHILS % (AUTO) 82.4 % (42-75); PLATELET COUNT 233 X10'3 (140-440); RED BLOOD COUNT 3.35 X10'6 (4.70-6.10); RED CELL DISTRIBUTION WIDTH 13.4 % (11.5-14.5); WHITE BLOOD COUNT 9.6 X10'3 (4.5-11.0)
[2023-06-10 07:07] LABS: ALANINE AMINOTRANSFERASE 28 U/L (12-78); ALBUMIN 2.4 G/DL (3.4-5.0); ALBUMIN/GLOBULIN RATIO 0.6 (1.1-1.5); ALKALINE PHOSPHATASE 79 IU/L (46-116); ANION GAP 2 (8-16); ASPARTATE AMINO TRANSFERASE 22 U/L (10-37); BILIRUBIN,TOTAL 0.4 MG/DL (0.1-1.0); BLOOD UREA NITROGEN 14 MG/DL (7-18); CALCIUM 9.1 MG/DL (8.5-10.1); CHLORIDE 100 MMOL/L (99-107); GLUCOSE 95 MG/DL (70-104); MAGNESIUM 1.7 MG/DL (1.5-2.4); POTASSIUM 3.9 MMOL/L (3.5-5.1); SODIUM 138 MMOL/L (135-145); TOTAL CARBON DIOXIDE 36.2 MMOL/L (24-32); TOTAL PROTEIN 6.1 G/DL (6.4-8.2); eCRCL 75 ML/MIN; eGFR > 90 ML/MIN
[2023-06-10] MEDS ORDERED: lisinopril 5mg tablet PO SCH (08:00)
[2023-06-10] MEDS: K and/or MAG REPLACEMENT MC SCH (08:00)
[2023-06-10] MEDS: potassium Cl 20mEq in NS 1,000 ML IV SCH (08:37)
[2023-06-10] MEDS: pantoprazole 40mg Tablet.DR PO SCH (10:10)
[2023-06-10] MEDS: CefTRIAXone/D5W-Rocephin 1gm 50 ML IV SCH (10:10)
[2023-06-10] MEDS: docusate sod 100mg capsule PO SCH (10:12)
[2023-06-10] MEDS: predniSONE 20 mg tablet PO SCH (10:13)
[2023-06-10] MEDS: morphine ER 15mg tablet PO SCH (10:13)
[2023-06-10] MEDS: guaiFENesin ER 600mg tablet PO SCH (10:13)
[2023-06-10] MEDS: enoxaparin 40mg/0.4ml syringe SUBCUT SCH (10:14)
[2023-06-10] MEDS: azithromycin/NS 500mg/250ml 250 ML IV SCH (11:11)
[2023-06-10] MEDS ORDERED: IPRA3AMP31 IH (12:36)
[2023-06-10] MEDS ORDERED: CEFD300C3 PO (12:36)
[2023-06-10] MEDS ORDERED: PRED10TA PO (12:36)
[2023-06-11] MEDS ORDERED: azithromycin 250mg tablet PO SCH (08:00)
[2023-06-12] MEDS ORDERED: LINE600T11 PO ×2 (12:24)
[2023-06-12] MEDS ORDERED: DOXY-243 PO (15:02)
== END 2023-06-10 15:30 | disposition home health service (06) | DRG 177 ==
LOC: ER 22:48 → ED HOLD 06-06 16:06 → EDBEDREQ 06-06 18:34 → ORTHO 4S 06-06 19:39
PROVIDERS: ADMIT Family Medicine; ATTEND Family Medicine
PROC: B32T1ZZ Computerized Tomography (CT Scan) of Left Pulmonary Artery using Low Osmolar Contrast (ICD-10-PCS; principal; 2023-06-06)
PROC: B3201ZZ Computerized Tomography (CT Scan) of Thoracic Aorta using Low Osmolar Contrast (ICD-10-PCS; 2023-06-06)
PROC: B32S1ZZ Computerized Tomography (CT Scan) of Right Pulmonary Artery using Low Osmolar Contrast (ICD-10-PCS; 2023-06-06)
DX: J15.212 Pneumonia due to Methicillin resistant Staphylococcus aureus (principal); J96.21 Acute and chronic respiratory failure with hypoxia; R65.11 Systemic inflammatory response syndrome (SIRS) of non-infectious origin with acute organ dysfunction; J43.9 Emphysema, unspecified; Z66 Do not resuscitate; G89.29 Other chronic pain; I10 Essential (primary) hypertension; R91.1 Solitary pulmonary nodule; R59.0 Localized enlarged lymph nodes; E87.6 Hypokalemia; S50.12XA Contusion of left forearm, initial encounter; W18.30XA Fall on same level, unspecified, initial encounter; Z20.822 Contact with and (suspected) exposure to COVID-19; Y93.89 Activity, other specified; Y92.89 Other specified places as the place of occurrence of the external cause; Y99.8 Other external cause status; Z87.11 Personal history of peptic ulcer disease; Z87.891 Personal history of nicotine dependence; Z99.81 Dependence on supplemental oxygen; Z79.899 Other long term (current) drug therapy; Z99.3 Dependence on wheelchair
CPT/HCPCS: 36415; 71045; 71275; 80053; 81001; 83605; 83735; 83880; 84132; 84145; 85025; 85379; 87040; 87070; 87077; 87081; 87186; 87811; 94640; 94664; 94668; 94760; 97161; 97530; 99285; A6258; A6449; G0378; J0456; J0696; J1650; J2543; J3480; J3490; J7030; J7512; Q9967

== ENCOUNTER 2024-10-27 16:48 | Inpatient (IN) | payer OTHER, MEDICARE ==
[~2024-10-27] VITALS: Ht 170.2 cm; Wt 49.0 kg
[~2024-10-27 16:48] MED LIST changes: +IPRA3AMP31 IH; +PRED10TA PO
--- NOTE | 2024-10-27 21:44 | Physician Documentation ---
History of Present Illness ~ Chief Complaint: Mechanical Fall Stated Complaint: FALL Time Seen by MD: 21:00 OK to notify your PCP?: Yes Primary Medical Doctor: MANNY MCCORMICK This is an 84-year-old male with a history of COPD who presents from a care facility with two days of generalized weakness and more recent frequent falls. Patient reports that he fell this morning though did not hit his head, patient additionally reports he does not take blood thinners. Patient reports generaliz ed body pain. Nursing staff [facility] and per their report patient had difficulty getting off the toilet today and had fallen back onto the toilet when trying to get up. Per prison patient is normally on 2 L of oxygen due to COPD. Medication Reconciliation Allergies: Coded Allergies: No Known Allergies (Unverified , 10/27/24) Scheduled Diclofenac Sodium (Diclofenac Sodium), 4 APPLIC TOP Q6H, (Reported) Lisinopril (Lisinopril), 1 TAB PO DAILY, (Reported) Lorazepam* (Ativan*), 1 TAB PO HS, (Reported) Morphine Sulfate (Morphine Sulfate Er), 1 TAB PO Q12H, (Reported) Omeprazole* (Prilosec*), 1 CAP PO DAILY, (Reported) Prednisone (Prednisone), 0 PO DAILY Sennosides (Senokot), 2 TAB PO DAILY, (Reported) Tiotropium Br/Olodaterol HCl (Stiolto Respimat Inhal [place]), 2 PUFF PO DAILY, (Reported) Trazodone HCl (Trazodone HCl), 1 TAB PO HS, (Reported) Scheduled PRN Albuterol Sulfate (Ventolin Hfa), 2 PUFFS INH Q4H PRN for SOB or wheezing, (Reported) Hydrocodone Bit/Acetaminophen 5/325 MG ([place] 5/325 MG), 1 TAB PO TID PRN for pain, (Reported) Ibuprofen (Ibuprofen), 1 TAB PO Q6H PRN for PAIN OR INFLAMMATION, (Reported) Ipratropium/Albuterol Sulfate (Duoneb 2.5-0.5 Mg/3 Ml Soln), 3 ML IH Q4H PRN for SOB or wheezing Past Medical History Past Medical History: Hypertension, COPD, Emphysema, Gastritis, GI Bleed, Peptic Ulcer Disease, Chronic Pain, Extremity Fracture Past Surgical History: orthopedic surgeries Alcohol Use: None Drug Use: none Lives In: Assisted Care Review of Systems ROS Generalized weakness as stated above in the HPI, otherwise all systems are reviewed and negative. Physical Exam Vital Signs: Temperature: 98.8, Source: Temporal, Heart Rate: 101, Respiratory Rate: 15, BP: 141/70, Pulse Oximetry: 96, Weight: 49.000 Oxygen Flow Rate: 2.0 Physical Exam VITALS: Reviewed and as above. GENERAL: Alert and oriented to person place and event, mildly ill-appearing, increased work of breathing HEENT: Atraumatic, PERRLA, EOMI, no raccoon eyes, no baez sign RESPIRATORY: Increased work of breathing, speaking in 1-2 word sentences, appears short of breath. Lung sounds diminished in all iniguez CHEST: Nontender to palpation CV: Regular rate and rhythm BACK: Nontender to palpation including no central tenderness GI: Nondistended, soft, nontender to palpation, no rebound, no guarding MUSCULOSKELETAL: Right proximal forearm swelling and ecchymosis, no obvious deformities, no tenderness elicited to palpation of extremities SKIN: Warm and dry Progress Progress Note 1249 I spoke with hospitalist resident Dr. Lemus who kindly accepts patient for admission Results/Orders Results/Orders Orders - VASHTI WHITLEY IT SECURITY ARCHITECT Monitor (10/27/24 21:39) Saline Lock (10/27/24 21:39) Oxygen (10/27/24 21:39) Cbc/Diff (10/27/24 21:39) Chest,Two Views (10/27/24 22:13) Electrocardiogram (10/27/24 21:39) Straight Cath For Urine Sample (10/27/24 21:39) Man Diff (10/27/24 21:50) Culture Blood (10/27/24 23:00) Svn Treatment (10/27/24 23:15) Forearm,Incl.One Joint (10/27/24 23:56) Page Hospitalist (10/28/24 00:19) Fill Out Med Reconciliation (10/28/24 00:19) Pathology Review (10/27/24 21:50) Completed Orders - VASHTI WHITLEY IT SECURITY ARCHITECT Chest,Two Views (10/27/24 22:13) PBNP (10/27/24 21:39) CMP (10/27/24 21:39) Hs Troponin I W Calculations (10/27/24 21:39) Procalcitonin (10/27/24 21:39) MG (10/27/24 21:39) Lacticsepsis (10/27/24 23:00) Normal Saline 1000ml (Sodium Chloride 10 (10/27/24 23:15) Ipratropium/Albuterol Nebule (Ipratrop/A (10/27/24 23:15) Ceftriaxone 2gm/D5w 50ml Bag (Rocephin 2 (10/27/24 23:15) Azithromycin/Ns 500mg/250ml (Zithromax/N (10/27/24 23:15) Forearm,Incl.One Joint (10/27/24 23:56) Ua W/Microscopic, Cult If Ind (10/28/24 01:30) Medications Received in ER Medications (Trade) Dose Ordered Sig/Ele Route PRN Reason Start Time Stop Time Status Last Admin Dose Admin (sodium chloride 1000ml IV soln) 500 ml ONCE ONCE IVB 10/27/24 23:15 10/27/24 23:16 DC 10/27/24 23:21 500 ML (ipratrop/ albuterol 0.5-3(2.5) MG/3ml nebule) 3 ml ONCE ONCE NEB 10/27/24 23:15 10/27/24 23:19 DC 10/28/24 00:12 3 ML Ceftriaxone Sodium/Dextrose 50 ml @ 100 mls/hr ONCE ONCE IV 10/27/24 23:15 10/27/24 23:44 DC 10/28/24 01:57 100 MLS/HR Azithromycin 250 ml @ 250 mls/hr ONCE ONCE IV 10/27/24 23:15 10/28/24 00:14 DC 10/28/24 03:51 250 MLS/HR Vital Signs 10/27/24 10/27/24 10/27/24 10/27/24 16:53 16:58 19:05 21:46 Temp 98.8 Pulse 101 95 Resp 15 20 B/P (MAP) 141/70 163/79 (107) Pulse Ox 96 96 99 O2 Delivery Nasal Cannula* O2 Flow Rate 2.0 2 4.0 FiO2 28 10/27/24 10/28/24 10/28/24 23:08 00:16 00:25 Temp 99.2 Pulse 103 94 92 Resp 24 18 18 Pulse Ox 98 95 97 O2 Delivery Nasal Cannula* Nasal Cannula* O2 Flow Rate 2.0 2 2 FiO2 28 28 Laboratory Tests Test 10/27/24 21:50 10/27/24 23:11 White Blood Count 33.5 *H Red Blood Count 4.06 L Hemoglobin 12.2 L Hematocrit 36.9 L Mean Corpuscular Volume 90.9 Mean Corpuscular Hemoglobin 30.0 Mean Corpuscular Hemoglobin Concent 33.0 Red Cell Distribution Width 14.3 Platelet Count 203 Mean Platelet Volume 8.6 Neutrophils (%) (Auto) 95.3 H Lymphocytes (%) (Auto) 1.1 L Monocytes (%) (Auto) 3.2 Eosinophils (%) (Auto) 0 Basophils (%) (Auto) 0.4 Neutrophils # (Auto) 31.9 H Lymphocytes # (Auto) 0.4 L Monocytes # (Auto) 1.1 H Eosinophils # (Auto) 0.0 Basophils # (Auto) 0.1 CBC Comment Differential Total Cells Counted 100 Neutrophils % (Manual) 85 H Band Neutrophils % 12 H Monocytes % (Manual) 3 Platelet Estimate Normal Red Blood Cell Morphology Normal Basophilic Stippling Sodium Level 139 Potassium Level 3.9 Chloride Level 100 Carbon Dioxide Level 32.3 H Anion Gap 7 L Blood Urea Nitrogen 24 H Creatinine 1.00 Estimated GFR/1.73 m2 71 BUN/Creatinine Ratio 24.0 H Glucose Level 123 H Calcium Level 9.3 Magnesium Level 1.7 Total Bilirubin 1.2 H Aspartate Amino Transf (AST/SGOT) 24 Alanine Aminotransferase (ALT/SGPT) 14 Alkaline Phosphatase 93 Troponin I High Sensitivity 25 Pro-B-Type Natriuretic Peptide 1307 H Total Protein 6.8 Albumin 3.6 Globulin 3.2 Albumin/Globulin Ratio 1.1 Procalcitonin 3.74 H Chemistry Comments Lactic Acid Level 1.3 Microbiology Date/Time Source Procedure Growth Status 10/27/24 23:16 Blood Hand Right Blood Culture - Preliminary NEGATIVE (LESS THAN 24 HOURS) Resulted EKG/XRAY/CT/US/VASC/MRI EKG : Additional Comment EKG obtained at 2153 interpreted by myself as: Sinus rhythm at a rate of 90, right bundle branch block, normal axis, nonspecific ST changes Abdominal X-Ray : Additional Comment Exam: CHEST,TWO VIEWS Clinical History SOB Comparison None Technique: chest x-ray 2 views Without Contrast TOI LEDEZMA, [id number] Findings: Heart - normal lungs - lingular infiltrate bones - no acute fracture. left shoulder arthroplasty. Degenerative changes in the right shoulder. Other- Impression: 1. Lingular density concerning for infiltrate. This report was electronically signed by Simon Yu MD on 10/27/2024 11:49:31 PM. Electronically Signed by:SIMON YU MD Date & Time: 10/27/242351 Dictated by: SIMON YU MD Dictation date and time: 10/27/242351 I have reviewed and agree with the radiology report. I have reviewed and interpreted the imaging as: Additionally focal consolidation right middle lobe consistent with a right middle lobe pneumonia Bone/Soft Tissue X-Ray (Ext.) : Additional Comment Clinical History ARM PAIN RIGHT S/P FALL Comparison None Technique: 3 views Without Contrast TOI LEDEZMA, [id number] FINDINGS: Examination is limited due to osteopenia. Osseous structures are anatomically aligned, with no evidence of acute fracture, dislocation, subluxation. No significant degenerative or erosive changes are noted. Soft tissue structures are grossly unremarkable. No displacement of the fat pads is noted. IMPRESSION: No acute findings. Osteopenia is noted. This report was electronically signed by Rekha Lan MD on 10/28/2024 12:55:24 AM. Electronically Signed by:REKHA LAN MD Date & Time: 10/28/2457 Dictated by: REKHA LAN MD Dictation date and time: 10/28/2457 I have reviewed and agree with the radiology report. I have reviewed and interpreted the imaging as: No fracture or dislocation Medical Decision Making Findings This 84-year-old male with history of COPD presented with two days of progressively worsening generalized weakness. Patient appears to be requiring increased amount of oxygen to maintain SpO2 over 90%, additionally patient appears short of breath speaking in two word sentences. WBC and pro calcitonin significantly increased indicating high suspicion for infective process, and there was consolidations on chest x-ray consistent with pneumonia. Labs and vital signs not consistent with sepsis or septicemia. EKG had nonspecific ST changes however troponin was not elevated therefore I have low suspicion for GA given patient reports no chest pain. As patient is requiring additional supplemental oxygen to mean contain SpO2 he will require admission for further evaluation, management, and monitoring. Patient is hemodynamically stable in the emergency department and IV antibiotics initiated. Hospitalist team contacted and kindly accepts patient for admission. Differential Dx:Considerations: Include: CVA, dehydration, electrolyte imbalance, hypovolemia, myocardial infarction, pulmonary embolus, respiratory failure, TIA, other (Sepsis, septicemia) Departure Disposition: ADMITTED INPATIENT Admitted to Inpatient Unit: to hospitalist Impression: Primary Impression: Community acquired pneumonia Qualified Codes: J18.9 - Pneumonia, unspecified organism Additional Impression: Weakness Condition: Guarded Referrals: NO PRIMARY CARE PROVIDER (PCP) Education Educated: Patient Educated regarding: diagnosis, treatment, prognosis, need for follow up Signature Scribe Signature: No scribe Attestation: The note accurately reflects work and decisions made by me.ANTHONY Zepeda 10/28/24 04:07 VASHTI WHITLEY October 27, 2024 21:44
[2024-10-27 21:58] LABS: BASOPHILS # (AUTO) 0.1 X10'3 (0-0.2); EOSINOPHILS % (AUTO) 0 % (0-6); LYMPHOCYTES # (AUTO) 0.4 X10'3 (1.1-4.8); MEAN PLATELET VOLUME 8.6 FL (7.4-10.4); NEUTROPHILS # (AUTO) 31.9 X10'3 (1.8-7.7)
[2024-10-27 22:00] LABS: BASOPHILS % (AUTO) 0.4 % (0-1); HEMATOCRIT 36.9 % (42.0-52.0); HEMOGLOBIN 12.2 g/dl (14.0-17.9); LYMPHOCYTES % (AUTO) 1.1 % (21-51); MEAN CORPUSCULAR VOLUME 90.9 FL (78-98); MONOCYTES # (AUTO) 1.1 X10'3 (0-0.9); MONOCYTES % (AUTO) 3.2 % (2-12); NEUTROPHILS % (AUTO) 95.3 % (42-75); PLATELET COUNT 203 X10'3 (140-440); RED BLOOD COUNT 4.06 X10'6 (4.70-6.10); RED CELL DISTRIBUTION WIDTH 14.3 % (11.5-14.5)
[2024-10-27 22:18] LABS: WHITE BLOOD COUNT 33.5 X10'3 (4.5-11.0)
[2024-10-27 23:19] LABS: ALANINE AMINOTRANSFERASE 14 U/L (12-78); ALBUMIN 3.6 G/DL (3.4-5.0); ALBUMIN/GLOBULIN RATIO 1.1 (1.1-1.5); ALKALINE PHOSPHATASE 93 IU/L (46-116); ANION GAP 7 (8-16); ASPARTATE AMINO TRANSFERASE 24 U/L (10-37); BILIRUBIN,TOTAL 1.2 MG/DL (0.1-1.0); BLOOD UREA NITROGEN 24 MG/DL (7-18); CALCIUM 9.3 MG/DL (8.5-10.1); CHLORIDE 100 MMOL/L (99-107); GLUCOSE 123 MG/DL (70-104); POTASSIUM 3.9 MMOL/L (3.5-5.1); SODIUM 139 MMOL/L (135-145); TOTAL CARBON DIOXIDE 32.3 MMOL/L (24-32); TOTAL PROTEIN 6.8 G/DL (6.4-8.2); eCRCL 37 ML/MIN; eGFR 71 ML/MIN
[2024-10-27] MEDS: normal saline 1000ML IV soln IVB ONE (23:21)
[2024-10-27 23:28] LABS: MAGNESIUM 1.7 MG/DL (1.5-2.4); PRO BRAIN NATRIURETIC PEPTIDE 1307 PG/ML (0-450)
--- NOTE | 2024-10-27 23:52 | RADIOLOGY REPORT ---
Clinical History SOB Comparison None Technique: chest x-ray 2 views Without Contrast DARIEN TOI, [id number] Findings: Heart - normal lungs - lingular infiltrate bones - no acute fracture. left shoulder arthroplasty. Degenerative changes in the right shoulder. Other- Impression: 1. Lingular density concerning for infiltrate. This report was electronically signed by Simon Fleming MD on 10/27/2024 11:49:31 PM.
[2024-10-28] VITALS (14 sets, daily range): BP systolic 127–165; BP diastolic 55–69; PULSE 71–94; RESP 16–24; TEMP 98–98.7; O2SAT 95–100
[2024-10-28] MEDS: ipratropium/albuterol 3ml nebule NEB ONE (00:12)
--- NOTE | 2024-10-28 00:58 | RADIOLOGY REPORT ---
Clinical History ARM PAIN RIGHT S/P FALL Comparison None Technique: 3 views Without Contrast TOI LEDEZMA, [id number] FINDINGS: Examination is limited due to osteopenia. Osseous structures are anatomically aligned, with no evide nce of acute fracture, dislocation, subluxation. No significant degenerative or erosive changes are n oted. Soft tissue structures are grossly unremarkable. No displacement of the fat pads is noted. IMPRESSION: No acute findings. Osteopenia is noted. This report was electronically signed by Stone Puentes MD on 10/28/2024 12:55:24 AM.
[2024-10-28 01:05] LABS: BANDS% (MANUAL) 12 % (0-10); MONOCYTES % (MANUAL) 3 % (2-12); NEUTROPHILS % (MANUAL) 85 % (42-75); PLATELET ESTIMATE NORMAL; TOTAL CELLS COUNTED 100
[2024-10-28] MEDS ORDERED: potassium Cl 40MEQ/1/2NS 520ml 520 ML IV PRN (01:05)
[2024-10-28] MEDS ORDERED: magnesium sulf-water 2g/50mL 50 ML IV PRN (01:05)
[2024-10-28] MEDS ORDERED: magnesium sulf-water 4G/100mL 100 ML IV PRN (01:05)
[2024-10-28] MEDS ORDERED: ondansetron/PF 4mg/2ml inj IV PRN (01:05)
[2024-10-28] MEDS ORDERED: magnesium hydroxide 30ml (MOM) UD suspension PO PRN (01:05)
[2024-10-28] MEDS ORDERED: magnesium Cl slow-release 64mg tablet PO PRN (01:05)
[2024-10-28] MEDS ORDERED: potassium Cl 20 mEq SR tablet PO PRN ×2 (01:05)
[2024-10-28] MEDS ORDERED: albuterol 2.5 MG/3 ML nebule NEB PRN (01:15)
--- NOTE | 2024-10-28 01:30 | HISTORY AND PHYSICAL-Residence ---
History & Physical Providers to CC Resident Creating Document: MARK CONTI RES CC: LADONNA POSADA MD ~ History of Present Illness Primary Medical Doctor: MANNY Reason for Admit\Complaint: AMS, fall History of Present Illness Patient is confused, not able to provide history. History is obtained from the EMR, and from the sign-out from ER provider 84-year-old male who lives in an assisted care living facility with history of COPD on home oxygen, hypertension, history of PUD, came in for two days of generalized weakness and recurrent falls. Currently patient had a fall this morning, did not hit his head. However he is having a swelling and bruise over the right forearm. Patient is not answering questions but repetitively asking for a tape. In the ER labs showed elevated WBC procalcitonin with chest x-ray showing some infiltrates. Patient was empirically started on Rocephin and azithromycin for pneumonia Allergies: Coded Allergies: No Known Allergies (Unverified , 10/27/24) Home Medications Home Medications Active Duoneb 2.5-0.5 Mg/3 Ml Soln (Ipratropium/Albuterol Sulfate) 0.5 Mg-3 Mg (2.5 Mg Base)/3 Ml Ampul.neb 3 Ml IH Q4H PRN Prednisone (Prednisone) 10 Mg Tablet 0 PO DAILY Take 4 tabs daily x4 days, then 3 daily x4 days 2 daily x4 days 1 daily x4 days 1/2 daily x4 days then STOP Reported Ibuprofen 600 Mg Tablet 1 Tab PO Q6H PRN 30 Days Stiolto Respimat Inhal [place] (Tiotropium Br/Olodaterol HCl) 4 Gm Mist.inhal 2 Puff PO DAILY Diclofenac Sodium 100 Gm Gel..gram. 4 Applic TOP Q6H 21 Days Trazodone HCl 100 Mg Tablet 1 Tab PO HS 30 Days Lisinopril 5 Mg Tablet 1 Tab PO DAILY 30 Days Senokot (Sennosides) 8.6 Mg Tablet 2 Tab PO DAILY 20 Days Morphine Sulfate Er (Morphine Sulfate) 15 Mg Tablet.er 1 Tab PO Q12H 30 Days Ventolin Hfa (Albuterol Sulfate) 18 Gm Hfa.aer.ad 2 Puffs INH Q4H PRN Ativan* (Lorazepam) 1 Mg Tablet 1 Tab PO HS 30 Days [place] 5/325 MG (Acetaminophen/Hydrocodone Bitart) 5 Mg/325 Mg Tablet 1 Tab PO TID PRN Prilosec* (Omeprazole) 20 Mg Capsule. 1 Cap PO DAILY Past Medical History Past Medical History Hypertension COPD/emphysema Peptic ulcer disease History of GI bleed Chronic pain Extremity fracture Past Surgical History Surgical History Comment Orthopedic surgeries Past Social History Social History Comment PER EMR, ex-smoker, no alcohol use, never , has a distant cousin in [place], Lives in [facility] Smoking: Quit greater than 1 year, Cigarettes Alcohol Use: None Drug Use: None Lives In: Assisted Care ROS ROS General: Adult male, confused, able to tell his name but not oriented to time and place, talking incoherently Head: Normocephalic with an atraumatic Eyes: Pupils- 3mm, reacting to light, conjunctiva- anicteric Nose and throat: No polyps, septum- normal, no mucosal ulcers Neck: Supple, no lymphadenopathy, no carotid bruit Respiratory: No use of accessory muscles of respiration, Bilateral normal breath sounds heard, bilateral wheezing present Cardiac: S1-S2 heard, rythm regular, no gallop/murmur Abdomen: non distended, no tenderness, no organomegaly, bowel sounds- heard Extremities: Right forearm- swollen, and bruising present, no clubbing, no pedal edema,, peripheral pulses- 2+ Skin: warm and dry, no rash, no purpura Neuro: Moving all extremities, rest of the examination unable to elicit as patient is confused and not following commands Exam Vitals: Vital Signs Date Time Temp Pulse Resp B/P (MAP) Pulse Ox O2 Delivery O2 Flow Rate FiO2 10/28/24 00:25 92 18 97 Nasal Cannula* 2 28 10/27/24 23:08 99.2 10/27/24 21:46 163/79 (107) Diagnostic Data Last Recorded Lab Results: 10/27/24214910/27/242149 Advance Care Planning Advanced Care plannin - 30 Minutes (As per his POLST, code status is DNR) Additional Plan 84-year-old male, living in an assisted living facility, with history of COPD on home oxygen, hypertension, came to the ER with chief complaints of recurrent falls, increasing weakness, and altered mental status Altered mental status 2/2 delirium vs metabolic encephalopathy -baseline mental status of the patient is not known -electrolytes are normal -will do workup with CT brain, ammonia, TSH, urinalysis -aspiration precautions, NPO until passes bedside swallow test -delirium precautions COPD in exacerbation Chronic hypoxemic respiratory failure Left community-acquired pneumonia -chest x-ray lingular infiltrate -critically started on IV Rocephin and azithromycin from 10/27-10/29 -follow up on COVID, influenza -started on IV methylprednisone 20 mg b.i.d. for COPD exacerbation -DuoNeb nebulization q.6 schedule and albuterol nebulization q.4h p.r.n. -continue oxygen at 2 L/min via NC to maintain SpO2 in the range of 88-94 Leukocytosis -WBC 33.3 left shift, procalcitonin 3.74 -suspect secondary to pneumonia, continue antibiotics as mentioned above -follow up on urinalysis -if patient is having diarrhea, then send stool for c.diff -Send urine strep and legionella Ag Hypertension -restart home medications once med reconciliation is done Recurrent falls -fall prevention, orthostatic vitals Right forearm swelling -x-ray reveal no fracture -monitor for swelling size daily, at risk of progression to compression syndrome Code Status: DNR Line/tube: PIV 33DVT prophylaxis: Lovenox Nutrition: NPO until passes bedside swallow PT: Yes Prognosis: Guarded Disposition: Continue care in PCU, Mark Conti MD IM PGY-2 resident Plan reviewed with bedside team. Patient seen through remote audiovisual assessment through HIPAA compliant setup. All labs, flowsheets, and images reviewed Cumulative nonprocedural care time spent in directed patient care = 30 min Date of Service: October 28, 2024 Billing Provider: REJI DILL MD, HARIVARSHA, RES October 28, 2024 01:29 REJI DILL MD October 28, 2024 07:23
[2024-10-28 01:38] LABS: BILIRUBIN,URINE NEGATIVE (Neg); CLARITY,URINE CLEAR (Clear); COLOR,URINE YELLOW (Yellow); GLUCOSE, URINE NEGATIVE (Neg); KETONES,URINE NEGATIVE (Neg); LEUKOCYTE ESTERASE ,URINE NEGATIVE (Neg); NITRITES, URINE NEGATIVE (Neg); OCCULT BLOOD,URINE NEGATIVE (Neg); PH,URINE 7.5 (4.8-8.0); PROTEIN,URINE 30 mg/dl (Neg)
[2024-10-28 01:48] LABS: UA COLLECTION TYPE CLN CATCH MIDSTREAM
[2024-10-28 01:50] LABS: BACTERIA,URINE NONE SEEN /HPF (Neg); RBC,URINE 0-2 /HPF (0-2); SQUAMOUS EPITHELIAL CELL,UR FEW /LPF (FEW); WBC,URINE 0-4 /HPF (0-4)
[2024-10-28] MEDS: CefTRIAXone 2gm/D5W 50ml BAG 50 ML IV ONE (01:57)
[2024-10-28] MEDS: ipratropium/albuterol 3ml nebule NEB SCH (02:00)
--- NOTE | 2024-10-28 02:31 | RADIOLOGY REPORT ---
EXAM: CT CT HEAD INDICATION: ALTERED MENTAL STATUS TECHNIQUE: CT of the head without intravenous contrast. Radiation Dose : 1. Head: CT Dose: CTDI volume is 49.98 mGy. Dose-length product is 1115.26 mGy*cm The dose indicators for CT are the volume Computed Tomography (CT) Dose Index (CTDIvol) and the Dose Length Product (DLP), and are measured in units of mGy and mGy-cm, respectively. These indicators are not patient dose, but values generated from the CT scanner acquisition factors. The report includes radiation exposure data for exposures received during this examination. COMPARISON: MRI HEAD on DOS: 04/06/20, MRI HEAD on DOS: 04/06/20, CT HEAD on DOS: 04/05/20 FINDINGS: There is no evidence of acute intracranial hemorrhage, extra-axial collection, mass effect, midline s hift, herniation or hydrocephalus. Increased prominence of the ventricles, sulci and cisterns is consistent with the sequelae of atrophi c cortical volume loss. The wetzel-white differentiation is intact. Moderate diffuse confluent periventricular and subcortical white matter hypoattenuation is nonspecifi c but may be related to small vessel ischemic disease. The visualized paranasal sinuses and mastoid air cells are clear. The surrounding soft tissues and osseous structures are unremarkable. IMPRESSION: 1. No acute intracranial abnormality. 2. 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 Radiation optimization: All CT scans at this facility use at least one of these dose optimization stevie hniques: automated exposure control mA and/or kV adjustment per patient size (includes targeted exam s where dose is matched to clinical indication) or iterative reconstruction.
[2024-10-28] MEDS: methylPREDNISolone sod succ 125mg/2ml vial IV ONE (03:48)
[2024-10-28] MEDS: azithromycin/NS 500mg/250ml 250 ML IV ONE (03:51)
[2024-10-28] MEDS: ringers solution, lacted 1,000 ML IV SCH (03:51)
[2024-10-28] MEDS ORDERED: LISI20TA28 PO (05:14)
[2024-10-28] MEDS ORDERED: NAPR-56 PO (05:14)
--- NOTE | 2024-10-28 06:48 | ELECTROCARDIOGRAPH REPORT ---
[facility] Test Date: 2024-10-27 Test Time: 21:53:01 Pat Name: TOI LEDEZMA Department: EMERGENCY ROOM Room: ORTHO [address] Gender: M Glazier Helper: : 1940 Requested By: VASHTI WHITLEY Order Number: [id number] Reading MD: Dr. Calvin Martínez Measurements Intervals [place] Rate: 90 P: 0 MT: 0 QRS: 57 QRSD: 137 T: 55 QT: 373 QTc: 457 Interpretive Statements Atrial fibrillation Right bundle branch block ST elevation, consider inferior injury Baseline wander in lead(s) V2 Electronically Signed On 11-03-2024 21:45:[address] Calvin Martínez Please click the below link to view image of tracing.
[2024-10-28 07:26] LABS: BASOPHILS # (AUTO) 0.3 X10'3 (0-0.2); EOSINOPHILS % (AUTO) 0 % (0-6); HEMOGLOBIN 10.4 g/dl (14.0-17.9); LYMPHOCYTES # (AUTO) 0.3 X10'3 (1.1-4.8); LYMPHOCYTES % (AUTO) 0.9 % (21-51); MEAN CORPUSCULAR HEMOGLOBIN 30.4 PG (27.0-31.0); MEAN CORPUSCULAR HGB CONC 33.5 g/dL (33.0-36.5); MEAN CORPUSCULAR VOLUME 90.9 FL (78-98); MEAN PLATELET VOLUME 9.4 FL (7.4-10.4); MONOCYTES # (AUTO) 1.6 X10'3 (0-0.9); MONOCYTES % (AUTO) 5.5 % (2-12); NEUTROPHILS # (AUTO) 26.4 X10'3 (1.8-7.7); NEUTROPHILS % (AUTO) 92.6 % (42-75); PLATELET COUNT 163 X10'3 (140-440); RED BLOOD COUNT 3.41 X10'6 (4.70-6.10); RED CELL DISTRIBUTION WIDTH 14.3 % (11.5-14.5)
[2024-10-28 07:46] LABS: WHITE BLOOD COUNT 28.5 X10'3 (4.5-11.0)
[2024-10-28 07:47] LABS: ALBUMIN 2.8 G/DL (3.4-5.0); ANION GAP 11 (8-16); BLOOD UREA NITROGEN 21 MG/DL (7-18); BUN/CREATININE RATIO 24.7 (10.0-20.0); CALCIUM 8.6 MG/DL (8.5-10.1); CHLORIDE 104 MMOL/L (99-107); CREATININE 0.85 MG/DL (0.60-1.10); GLUCOSE 99 MG/DL (70-104); POTASSIUM 3.7 MMOL/L (3.5-5.1); SODIUM 143 MMOL/L (135-145); TOTAL CARBON DIOXIDE 28.2 MMOL/L (24-32); eCRCL 43 ML/MIN; eGFR 85 ML/MIN
[2024-10-28] MEDS: K and/or MAG REPLACEMENT MC SCH (08:00)
[2024-10-28 08:40] LABS: PLATELET ESTIMATE NORMAL; TOTAL CELLS COUNTED 100
[2024-10-28] MEDS: enoxaparin 40mg/0.4ml syringe SUBCUT SCH (09:29)
[2024-10-28] MEDS: lisinopril 20mg tablet PO SCH (09:29)
[2024-10-28] MEDS: pantoprazole 40mg Tablet.DR PO SCH (09:30)
[2024-10-28] MEDS: docusate sod 100mg capsule PO SCH (09:30)
[2024-10-28] MEDS: morphine ER 15mg tablet PO SCH (09:30)
[2024-10-28] MEDS: methylPREDNISolone sod succ 125mg/2ml vial IV SCH (10:50)
[2024-10-28] MEDS: CefTRIAXone/D5W-Rocephin 1gm 50 ML IV SCH (20:41)
[2024-10-28] MEDS: traZODone 50mg tablet PO SCH (21:01)
[2024-10-28] MEDS: azithromycin/NS 500mg/250ml 250 ML IV SCH (22:04)
[2024-10-29] VITALS (11 sets, daily range): BP systolic 133–176; BP diastolic 57–82; PULSE 66–101; RESP 15–22; TEMP 97.9–98.6; O2SAT 94–100
[2024-10-29] MEDS: acetaminophen 325mg tablet PO PRN (01:07)
[2024-10-29 07:15] LABS: BASOPHILS # (AUTO) 0.2 X10'3 (0-0.2); BASOPHILS % (AUTO) 0.7 % (0-1); EOSINOPHILS % (AUTO) 0 % (0-6); HEMOGLOBIN 8.4 g/dl (14.0-17.9); LYMPHOCYTES # (AUTO) 0.2 X10'3 (1.1-4.8); LYMPHOCYTES % (AUTO) 0.7 % (21-51); MEAN CORPUSCULAR HEMOGLOBIN 30.3 PG (27.0-31.0); MEAN CORPUSCULAR HGB CONC 33.6 g/dL (33.0-36.5); MEAN CORPUSCULAR VOLUME 90.3 FL (78-98); MEAN PLATELET VOLUME 9.2 FL (7.4-10.4); MONOCYTES # (AUTO) 0.8 X10'3 (0-0.9); MONOCYTES % (AUTO) 2.9 % (2-12); NEUTROPHILS # (AUTO) 26.7 X10'3 (1.8-7.7); NEUTROPHILS % (AUTO) 95.7 % (42-75); PLATELET COUNT 143 X10'3 (140-440); RED BLOOD COUNT 2.76 X10'6 (4.70-6.10); RED CELL DISTRIBUTION WIDTH 14.1 % (11.5-14.5)
[2024-10-29 07:18] LABS: WHITE BLOOD COUNT 27.9 X10'3 (4.5-11.0)
[2024-10-29 07:57] LABS: ALANINE AMINOTRANSFERASE 16 U/L (12-78); ALBUMIN 2.4 G/DL (3.4-5.0); ALBUMIN/GLOBULIN RATIO 0.9 (1.1-1.5); ALKALINE PHOSPHATASE 63 IU/L (46-116); ANION GAP 4 (8-16); ASPARTATE AMINO TRANSFERASE 31 U/L (10-37); BILIRUBIN,TOTAL 0.5 MG/DL (0.1-1.0); BLOOD UREA NITROGEN 26 MG/DL (7-18); BUN/CREATININE RATIO 28.6 (10.0-20.0); CALCIUM 8.5 MG/DL (8.5-10.1); CHLORIDE 98 MMOL/L (99-107); CREATININE 0.91 MG/DL (0.60-1.10); GLUCOSE 121 MG/DL (70-104); MAGNESIUM 1.6 MG/DL (1.5-2.4); PHOSPHORUS 2.4 MG/DL (2.3-4.5); POTASSIUM 3.7 MMOL/L (3.5-5.1); THYROID STIMULATING HORMONE 0.71 ulU/ml (0.34-4.50); TOTAL CARBON DIOXIDE 29.9 MMOL/L (24-32); TOTAL PROTEIN 5.2 G/DL (6.4-8.2); eCRCL 40 ML/MIN; eGFR 79 ML/MIN
[2024-10-29] MEDS: lactose-reduced food (Ensure Enlive) - 237ml bottle PO SCH (08:00)
[2024-10-29] MEDS ORDERED: vancomycin/NS 1 GM ADD-VANTAGE 250 ML IV SCH (08:10)
[2024-10-29 08:20] LABS: SODIUM 132 MMOL/L (135-145)
[2024-10-29 08:22] LABS: TOTAL CELLS COUNTED 100
[2024-10-29 08:23] LABS: PLATELET ESTIMATE NORMAL
[2024-10-29] MEDS: vancomycin/NS 1 GM ADD-VANTAGE 250 ML IV SCH (09:38)
--- NOTE | 2024-10-29 19:40 | PROGRESS NOTE ---
Daily Progress Note Providers to CC ~ Antibiotic Timeout Antibiotic Ordered?: Yes Subjective Patient states being short of breath with exertion and feeling weak; denies any chest pain or excessive coughing Objective Vital Signs Date Time Temp Pulse Resp B/P (MAP) Pulse Ox O2 Delivery O2 Flow Rate FiO2 10/29/24 10:00 98.3 97 15 140/60 (86) 96 Nasal Cannula 2.0 28 Result Diagram: 10/29/24 0702 10/29/24 0702 In bed in nonacute distress HEENT normal oral mucosa no JVD Lungs with mild bibasilar crackles no wheezing Heart normal rate and rhythm S1-S2 Abdomen is soft nontender bowel sounds are present Extremities no edema plus two pulses Awake and alert Problem\Assessment\Plan Patient is admitted for acute respiratory failure likely related to pneumonia Pneumonia possibly healthcare associated; vancomycin added to ceftriaxone and Zithromax Sepsis secondary to pneumonia; patient has one of two blood cultures from admission positive for Gram-positive cocci in clusters Hypertension on lisinopril Insomnia trazodone DVT prophylaxis with Lovenox Date of Service: October 29, 2024 Billing Provider: ALEJANDRINA SCHAEFFER MD Common Visit Codes: [id number] INP/OBS CARE(HIGH) ALEJANDRINA SCHAEFFER MD October 29, 2024 19:40
[2024-10-30] VITALS (13 sets, daily range): BP systolic 136–162; BP diastolic 58–91; PULSE 88–102; RESP 15–18; TEMP 98–98.4; O2SAT 89–97
[2024-10-30 06:14] LABS: ALANINE AMINOTRANSFERASE 23 U/L (12-78); ALBUMIN 2.4 G/DL (3.4-5.0); ALBUMIN/GLOBULIN RATIO 0.9 (1.1-1.5); ALKALINE PHOSPHATASE 82 IU/L (46-116); ANION GAP 3 (8-16); ASPARTATE AMINO TRANSFERASE 30 U/L (10-37); BILIRUBIN,TOTAL 0.5 MG/DL (0.1-1.0); BLOOD UREA NITROGEN 27 MG/DL (7-18); CALCIUM 8.5 MG/DL (8.5-10.1); CHLORIDE 103 MMOL/L (99-107); CREATININE 0.73 MG/DL (0.60-1.10); GLUCOSE 114 MG/DL (70-104); MAGNESIUM 1.8 MG/DL (1.5-2.4); PHOSPHORUS 2.1 MG/DL (2.3-4.5); POTASSIUM 3.6 MMOL/L (3.5-5.1); SODIUM 139 MMOL/L (135-145); TOTAL CARBON DIOXIDE 32.9 MMOL/L (24-32); TOTAL PROTEIN 5.2 G/DL (6.4-8.2); eCRCL 50 ML/MIN; eGFR > 90 ML/MIN
[2024-10-30 06:18] LABS: BASOPHILS % (AUTO) 0.2 % (0-1); EOSINOPHILS % (AUTO) 0 % (0-6); HEMATOCRIT 25.8 % (42.0-52.0); HEMOGLOBIN 8.6 g/dl (14.0-17.9); LYMPHOCYTES # (AUTO) 0.2 X10'3 (1.1-4.8); LYMPHOCYTES % (AUTO) 0.9 % (21-51); MEAN CORPUSCULAR HEMOGLOBIN 30.1 PG (27.0-31.0); MEAN CORPUSCULAR HGB CONC 33.6 g/dL (33.0-36.5); MEAN CORPUSCULAR VOLUME 89.6 FL (78-98); MEAN PLATELET VOLUME 9.1 FL (7.4-10.4); MONOCYTES # (AUTO) 0.7 X10'3 (0-0.9); MONOCYTES % (AUTO) 3.4 % (2-12); NEUTROPHILS # (AUTO) 19.9 X10'3 (1.8-7.7); NEUTROPHILS % (AUTO) 95.5 % (42-75); PLATELET COUNT 171 X10'3 (140-440); RED BLOOD COUNT 2.87 X10'6 (4.70-6.10); WHITE BLOOD COUNT 20.9 X10'3 (4.5-11.0)
[2024-10-30] MEDS: furosemide 20 MG/2 ML vial IV SCH (11:00)
[2024-10-30] MEDS: METHYL SALICYLATE 15%/MENTHOL 1% CREAM-- 85GM TUBE TOP PRN (16:55)
--- NOTE | 2024-10-30 18:46 | PROGRESS NOTE ---
Daily Progress Note Providers to CC ~ Antibiotic Timeout Antibiotic Ordered?: Yes Subjective Still weak and pretty short of breath Objective Vital Signs Date Time Temp Pulse Resp B/P (MAP) Pulse Ox O2 Delivery O2 Flow Rate FiO2 10/30/24 16:16 100 18 Nasal Cannula 2.0 10/30/24 16:07 95 28 10/30/24 10:00 98.0 155/76 (102) Result Diagram: 10/30/24 0435 10/30/24 0435 In bed in nonacute distress HEENT normal oral mucosa no JVD Lungs with mild bibasilar crackles no wheezing Heart normal rate and rhythm S1-S2 Abdomen is soft nontender bowel sounds are present Extremities no edema plus two pulses Awake and alert Problem\Assessment\Plan Patient is admitted for acute respiratory failure likely related to pneumonia Pneumonia possibly healthcare associated; vancomycin added to ceftriaxone and Zithromax 10/30 white count improving Sepsis secondary to pneumonia; patient has one of two blood cultures from admission positive for Gram-positive cocci in clusters Hypertension on lisinopril Possible component CHF; IV Lasix; check echo Insomnia trazodone DVT prophylaxis with Lovenox Date of Service: October 30, 2024 Billing Provider: ALEJANDRINA SCHAEFFER MD Common Visit Codes: [id number] INP/OBS CARE(HIGH) ALEJANDRINA SCHAEFFER MD October 30, 2024 18:46
--- NOTE | 2024-10-30 23:33 | CARDIOLOGY REPORT ---
APPROVED REPORT EXAM: Comprehensive 2D, Doppler, and color-flow Echocardiogram. Patient Location: [address] Blood Pressure: 154/83 mmHg Heart Rate: 92 bpm Rhythm: Sinus with RBBB Indications CHF Acute Respiratory Failure due to Pneumonia Sepsis Positive for Gram-possitive cocci Press Cutter: SHA Patient Previous echo: 07/29/2018 [facility] EF:70%, mild LA 2D Dimensions RVDd 2.9 cm LA Diam4.1 cm LVOT Diameter 2.07 (1.8-2.4cm) IVC 17.26 mm M-Mode Dimensions Aortic Root 3.48 (2.2-3.7cm) Aortic Cusp Exc 1.87 (1.5-2.0cm) Aortic Valve AoV Peak Ahsan. 164.2 cm/s AoV VTI 34.3 cm AO Peak GR. 10.8 mmHg AO Mean GR. 6 mmHg LVOT VTI 25.03 cm LVOT Peak Ahsan. 124.9 cm/s CORINNA(VTI)/BSA 2.45 cm2/m2 CORINNA (VTI) 2.45 cm2 Mitral Valve MV E Velocity 62.3 cm/s MV Peak Gr. 3 mmHg MV DECEL TIME 136 ms MV A Velocity 92.9 cm/s MV PHT 60 ms E/A Ratio 0.7 MVA (PHT) 3.67 cm2 MV VMax93.1 cm/s Tricuspid Valve TR P. Velocity 275 cm/s RAP ESTIMATE 10 mmHg TR Peak Gr. 30 mmHg RVSP 40 mmHg LEFT VENTRICLE Normal LV size and wall thickness. Overall systolic function is normal. Overall LVEF is 70%. RIGHT VENTRICLE RV is normal size and function. Estimated PA systolic pressure is 40 mmHg. ATRIA Left atrium is mildly dilated. AORTIC VALVE Trileaflet AV appears sclerotic without stenosis or insufficiency. MITRAL VALVE Mild MV annular calcification and thickening without stenosis. Trace regurgitation. TRICUSPID VALVE TV appears structurally normal with trace regurgitation. PULMONIC VALVE Pulmonic valve is not well visualized. GREAT VESSELS The aortic root is normal in size. IVC is normal in size and collapses less than 50% with inspiration . PERICARDIUM Normal pericardium. No pericardial effusion seen. Other Information Study Quality: Fair Conclusion Normal LV size and wall thickness. Overall systolic function is normal. Overall LVEF is 70%. RV is normal size and function. Estimated PA systolic pressure is 40 mmHg. Left atrium is mildly dilated. Trileaflet AV appears sclerotic without stenosis or insufficiency. Mild MV annular calcification and thickening without stenosis. Trace regurgitation. TV appears structurally normal with trace regurgitation. Normal pericardium. No pericardial effusion seen.
[2024-10-31] VITALS (14 sets, daily range): BP systolic 95–177; BP diastolic 64–91; PULSE 87–101; RESP 14–19; TEMP 98.4–98.7; O2SAT 95–99
[2024-10-31 06:07] LABS: BASOPHILS % (AUTO) 0.1 % (0-1); EOSINOPHILS % (AUTO) 0 % (0-6); HEMATOCRIT 25.5 % (42.0-52.0); HEMOGLOBIN 8.5 g/dl (14.0-17.9); LYMPHOCYTES # (AUTO) 0.2 X10'3 (1.1-4.8); MEAN CORPUSCULAR HGB CONC 33.4 g/dL (33.0-36.5); MEAN PLATELET VOLUME 9.1 FL (7.4-10.4); MONOCYTES # (AUTO) 0.5 X10'3 (0-0.9); MONOCYTES % (AUTO) 4.7 % (2-12); NEUTROPHILS # (AUTO) 10.5 X10'3 (1.8-7.7); NEUTROPHILS % (AUTO) 93.2 % (42-75); PLATELET COUNT 176 X10'3 (140-440); RED BLOOD COUNT 2.83 X10'6 (4.70-6.10); RED CELL DISTRIBUTION WIDTH 13.5 % (11.5-14.5); WHITE BLOOD COUNT 11.2 X10'3 (4.5-11.0)
[2024-10-31 06:31] LABS: ALANINE AMINOTRANSFERASE 23 U/L (12-78); ALBUMIN 2.4 G/DL (3.4-5.0); ALBUMIN/GLOBULIN RATIO 0.9 (1.1-1.5); ALKALINE PHOSPHATASE 75 IU/L (46-116); ANION GAP 2 (8-16); ASPARTATE AMINO TRANSFERASE 20 U/L (10-37); BILIRUBIN,TOTAL 0.4 MG/DL (0.1-1.0); BLOOD UREA NITROGEN 30 MG/DL (7-18); BUN/CREATININE RATIO 41.7 (10.0-20.0); CALCIUM 8.5 MG/DL (8.5-10.1); CHLORIDE 101 MMOL/L (99-107); CREATININE 0.72 MG/DL (0.60-1.10); GLUCOSE 112 MG/DL (70-104); MAGNESIUM 1.8 MG/DL (1.5-2.4); PHOSPHORUS 2.5 MG/DL (2.3-4.5); POTASSIUM 3.8 MMOL/L (3.5-5.1); SODIUM 139 MMOL/L (135-145); eCRCL 51 ML/MIN; eGFR > 90 ML/MIN
--- NOTE | 2024-10-31 17:34 | PROGRESS NOTE ---
Daily Progress Note Providers to CC ~ Antibiotic Timeout Antibiotic Ordered?: Yes Subjective Patient states no changes Objective Vital Signs Date Time Temp Pulse Resp B/P (MAP) Pulse Ox O2 Delivery O2 Flow Rate FiO2 10/31/24 16:06 98 18 Nasal Cannula 2.0 10/31/24 16:05 95 28 10/31/24 10:00 98.5 154/75 (101) Result Diagram: 10/31/24 0428 10/31/24 0428 In bed in nonacute distress HEENT normal oral mucosa no JVD Lungs with mild bibasilar crackles no wheezing Heart normal rate and rhythm S1-S2 Abdomen is soft nontender bowel sounds are present Extremities no edema plus two pulses Awake and alert Problem\Assessment\Plan Patient is admitted for acute respiratory failure likely related to pneumonia Pneumonia possibly healthcare associated; vancomycin added to ceftriaxone and Zithromax 10/29 10/30 white count improving Sepsis secondary to pneumonia; patient has one of two blood cultures from admission positive for Gram-positive cocci in clusters 10/31 to one blood culture that was positive this likely a contaminant showing staph home units Hypertension on lisinopril Possible component CHF; IV Lasix; check echo 10/31 echocardiogram showing preserved EF and moderate pulmonary hypertension Anemia, stable over the past few days likely initial dropped due to IV fluids Insomnia trazodone DVT prophylaxis with Lovenox Discharge disposition back to rehab hopefully tomorrow Date of Service: October 31, 2024 Billing Provider: ALEJANDRINA SCHAEFFER MD Common Visit Codes: [id number] INP/OBS CARE(HIGH) ALEJANDRINA SCHAEFFER MD October 31, 2024 17:34
[2024-11-01] VITALS (7 sets, daily range): BP systolic 147–181; BP diastolic 70–87; PULSE 84–98; RESP 15–18; TEMP 97.7–98; O2SAT 97–98
[2024-11-01 06:45] LABS: BASOPHILS % (AUTO) 0.2 % (0-1); EOSINOPHILS % (AUTO) 0.1 % (0-6); HEMATOCRIT 32.2 % (42.0-52.0); HEMOGLOBIN 10.6 g/dl (14.0-17.9); LYMPHOCYTES # (AUTO) 0.4 X10'3 (1.1-4.8); LYMPHOCYTES % (AUTO) 3.6 % (21-51); MEAN CORPUSCULAR HEMOGLOBIN 29.9 PG (27.0-31.0); MEAN CORPUSCULAR VOLUME 90.5 FL (78-98); MEAN PLATELET VOLUME 8.3 FL (7.4-10.4); MONOCYTES # (AUTO) 0.9 X10'3 (0-0.9); NEUTROPHILS % (AUTO) 88.1 % (42-75); PLATELET COUNT 218 X10'3 (140-440); RED BLOOD COUNT 3.55 X10'6 (4.70-6.10); RED CELL DISTRIBUTION WIDTH 13.9 % (11.5-14.5); WHITE BLOOD COUNT 11.4 X10'3 (4.5-11.0)
[2024-11-01 07:20] LABS: ALANINE AMINOTRANSFERASE 27 U/L (12-78); ALKALINE PHOSPHATASE 84 IU/L (46-116); ANION GAP 5 (8-16); ASPARTATE AMINO TRANSFERASE 18 U/L (10-37); BILIRUBIN,TOTAL 0.7 MG/DL (0.1-1.0); BLOOD UREA NITROGEN 29 MG/DL (7-18); BUN/CREATININE RATIO 38.7 (10.0-20.0); CALCIUM 9.1 MG/DL (8.5-10.1); CHLORIDE 97 MMOL/L (99-107); CREATININE 0.75 MG/DL (0.60-1.10); GLUCOSE 96 MG/DL (70-104); PHOSPHORUS 3.2 MG/DL (2.3-4.5); SODIUM 139 MMOL/L (135-145); TOTAL CARBON DIOXIDE 37.3 MMOL/L (24-32); TOTAL PROTEIN 6.1 G/DL (6.4-8.2); eCRCL 49 ML/MIN; eGFR > 90 ML/MIN
[2024-11-01] MEDS: VANCOMYCIN LEVEL IV ONE (07:30)
[2024-11-01] MEDS: predniSONE 20 mg tablet PO SCH (09:30)
[2024-11-01] MEDS ORDERED: FURO-150 PO (09:55)
[2024-11-01] MEDS ORDERED: LINE600T11 PO (09:55)
[2024-11-01] MEDS ORDERED: LEVO750T68 PO (11:44)
--- NOTE | 2024-11-01 18:00 | DISCHARGE SUMMARY ---
Discharge Summary Providers to CC ~ Discharge Summary Admission Diagnosis: AMS Hospital Course DATE OF ADMISSION: October 28, 2024 DATE OF DISCHARGE: November 01, 2024 Discharge Diagnosis\Comment: Possible healthcare associated pneumonia Sepsis secondary to the pneumonia History of high blood pressure Chronic cor pulmonale Acute hypoxemic respiratory failure on top of chronic respiratory failure Anemia insomnia Operations\Procedures: None Consultants: None Complications: None Condition on DC: Stable Discharge Summary: This is an 84 years old male who presents to the hospital with worsening shortness of breath and was admitted for community-acquired pneumonia and treated with ceftriaxone and Zithromax; admission patient had sepsis; due to persistent white count vancomycin was added and patient condition slowly improved; a CT of the head done with upon admission showed chronic sequela of microvascular disease; echocardiogram shows an EF of 70% with a PA pressure of 40; patient's condition slowly improved worked with physical therapy and he is back to his baseline so patient in stable condition is discharged home Patient was discharged with prescription for Lasix 20 mg p.o. daily Levaquin 750 mg p.o. daily Zyvox 600 mg p.o. q.12 hours for seven days; patient to continue his albuterol inhaler two puffs every 4 hours p.r.n. shortness of breaths [place]ad [id number] tablet p.o. t.i.d. DuoNeb inhaler lisinopril 20 mg p.o. b.i.d. morphine sulfate 60 mg p.o. q.12 hours omeprazole 20 mg p.o. daily and Stiolto Respimat inhaler spray On the of discharge white count 11.4 H&H 10.6/32 with 218 platelets; sodium 139 potassium four CO2 37 BUN 29 and creatinine 0.7 In the physical examination temperature 98 heart rate 98 breathing 15 blood pressure 147/797% on 2 L HEENT normal oral mucosa no JVD lungs with decreased bilateral entry no crackles no wheezing heart normal rate and rhythm S1-S2 no murmurs abdomen is soft nontender bowel sounds are present extremities no edema plus two pulses he is awake and alert Patient was discharged home with home care nurse to follow up with his primary care physician within a week *Problems/Diagnosis: (1) Community acquired pneumonia Status: Acute Total Time Spent on D/C: > 30 Minutes Date of Service: November 01, 2024 Common Visit Codes: 25779-OTA/OBS DISCH DAY >30min Problem Qualifiers (1) Community acquired pneumonia: Qualified Codes: J18.9 - Pneumonia, unspecified organism ALEJANDRINA SCHAEFFER MD November 01, 2024 17:59
[2024-11-02] MEDS ORDERED: VANCOmycin 1250MG/NS 250ml Bag 250 ML IV SCH (09:00)
[2024-11-05] MEDS ORDERED: VANCOMYCIN LEVEL IV ONE (08:30)
== END 2024-11-01 12:20 | disposition home health service (06) | DRG 871 ==
LOC: ER 16:48 → ED HOLD 10-28 01:10 → ORTHO 4S 10-28 05:45
PROVIDERS: ADMIT Internal Medicine Critical Care Medicine; ATTEND Internal Medicine
DX: A41.9 Sepsis, unspecified organism (principal); J18.9 Pneumonia, unspecified organism; J96.21 Acute and chronic respiratory failure with hypoxia; J44.1 Chronic obstructive pulmonary disease with (acute) exacerbation; J44.0 Chronic obstructive pulmonary disease with (acute) lower respiratory infection; Z20.822 Contact with and (suspected) exposure to COVID-19; J43.9 Emphysema, unspecified; I10 Essential (primary) hypertension; G89.29 Other chronic pain; Z66 Do not resuscitate; D64.9 Anemia, unspecified; G47.00 Insomnia, unspecified; I27.20 Pulmonary hypertension, unspecified; I27.81 Cor pulmonale (chronic); Z79.899 Other long term (current) drug therapy; Z87.11 Personal history of peptic ulcer disease
CPT/HCPCS: 36415; 70450; 71046; 73090; 80048; 80053; 80202; 81001; 82140; 83605; 83735; 83880; 84100; 84145; 84443; 84484; 85007; 85025; 87040; 87077; 87081; 87186; 87811; 92508; 92616; 93005; 93306; 94640; 94760; 96361; 97161; 97530; 99285; A6449; G0378; J0456; J0696; J1650; J1938; J2919; J3370; J7030; J7050; J7120; J7512